=== PATIENT | female | born 1985 | race Caucasian/White ===

== ENCOUNTER 2017-07-18 00:44 | Emergency (ER) | payer BC ==
[~2017-07-18] VITALS: Ht 154.9 cm; Wt 86.6 kg
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
--- NOTE | 2017-07-18 03:09 | NUR ---
PT OFF TO CT
--- NOTE | 2017-07-18 03:19 | NUR ---
PT BACK FROM CT
[2017-07-18 04:58] VITALS: BP 118/71
== END 2017-07-18 04:59 | disposition home or self-care (01) ==
LOC: ER 00:53
DX: S00.83XA Contusion of other part of head, initial encounter (principal); S09.90XA Unspecified injury of head, initial encounter; M54.5 Low back pain; E28.2 Polycystic ovarian syndrome; F41.9 Anxiety disorder, unspecified; Y04.2XXA Assault by strike against or bumped into by another person, initial encounter; Y93.89 Activity, other specified; Y92.89 Other specified places as the place of occurrence of the external cause; Y99.8 Other external cause status
CPT/HCPCS: 70450; 99284; A4606; Z7610